=== PATIENT | female | born 1995 | race Caucasian/White ===

== ENCOUNTER 2017-02-08 22:20 | Emergency (ER) | payer SELFPAY ==
[2017-02-08 23:02] LABS: URINE SOURCE CLEAN CATCH
[2017-02-08 23:06] LABS: URINE APPEARANCE CLEAR; URINE BILIRUBIN NEG (NEG); URINE BLOOD 3+ (NEG); URINE COLOR YELLOW; URINE GLUCOSE NEG (NORM); URINE KETONE NEG (NEG); URINE LEUKOCYTE ESTERASE NEG (NEG); URINE NITRATE NEG (NEG); URINE PROTEIN NEG (NEG); URINE SPECIFIC GRAVITY <=1.005 (1.003-1.035); URINE UROBILINOGEN 0.2 MG/DL (NORM)
[2017-02-08 23:09] LABS: BASOPHIL# 0.1 X10e3 (0-0.3); BASOPHIL% 0.9 % (0-2.5); EOSINOPHIL# 0.1 X10e3 (0-0.7); EOSINOPHIL% 0.6 % (0.0-7.0); HEMOGLOBIN 13.8 gm/dL (12.0-16.0); LYMPHOCYTE# 2.9 X10e3 (1.0-3.5); LYMPHOCYTE% 23.3 % (17.0-45.0); MEAN CELL VOLUME 86.7 FL (83-96); MEAN CORPUSCULAR HEMOGLOBIN 29.2 PG (28-34); MEAN CORPUSCULAR HGB CONC 33.6 g/dL (30-36); MEAN PLATELET VOLUME 8.5 FL (6.5-11.5); MONOCYTE# 0.7 X10e3 (0-1.0); MONOCYTE% 5.4 % (3.0-12.0); NEUTROPHIL# 8.7 X10e3 (1.5-7.1); NEUTROPHIL% 69.8 % (40-75); PLATELET COUNT 302 X10e3 (140-420); RED BLOOD COUNT 4.72 X10e (3.90-5.30); WHITE BLOOD COUNT 12.5 X10e3 (4.0-10.5)
[2017-02-08 23:11] LABS: DIFF IND NO
[2017-02-08 23:12] LABS: MICRO INDICATED? YES
[2017-02-08 23:13] LABS: CULTURE INDICATED? NO; URINE BACTERIA NEG (NEG); URINE SQUAMOUS EPITHELIAL CELL OCCAS /[HPF]; URINE WBC 0-2 /[HPF] (0-5)
== END 2017-02-08 23:55 | disposition home or self-care (01) ==
LOC: SED 22:20
PROVIDERS: Emergency Medicine
DX: N94.6 Dysmenorrhea, unspecified (principal); F17.210 Nicotine dependence, cigarettes, uncomplicated; F41.9 Anxiety disorder, unspecified; F32.9 Major depressive disorder, single episode, unspecified; F43.10 Post-traumatic stress disorder, unspecified
CPT/HCPCS: 36415; 81003; 84702; 85025; 99284